=== PATIENT | female | born 2000 | race Caucasian/White ===

== ENCOUNTER 2022-09-07 01:01 | Emergency (ER) | payer BC ==
[~2022-09-07] VITALS: Ht 165.1 cm; Wt 63.5 kg
--- NOTE | 2022-09-07 01:39 | NUR ---
seen and examined by Dr. Ramos
--- NOTE | 2022-09-07 01:56 | NUR ---
Irrigated pt. L hand
[2022-09-07] MEDS ORDERED: AMOX-430 PO (02:34)
--- NOTE | 2022-09-07 02:39 | NUR ---
Patient discharged to home in stable condition. Written and verbal after care instructions given. Patient verbalizes understanding of instructions. Stressed follow up or return to ER for worsening s/s.
[2022-09-07 02:40] VITALS: BP 120/80
== END 2022-09-07 02:40 | disposition home or self-care (01) ==
LOC: ER 01:11
DX: S61.432A Puncture wound without foreign body of left hand, initial encounter (principal); S64.40XA Injury of digital nerve of unspecified finger, initial encounter; W27.2XXA Contact with scissors, initial encounter; Y92.89 Other specified places as the place of occurrence of the external cause
CPT/HCPCS: A4663